=== PATIENT | female | born 1985 | race Caucasian/White ===

== ENCOUNTER → 2016-08-20 | Outpatient (CLI) | payer OTHER ==
[~2016-08-20] MED LIST: MESA10002 RC; NF-VYVAN20 PO
--- OUTSIDE RECORDS SUMMARY | 2016-08-20 10:21 | XMS REPORT | Continuity of Care Document ---
Author Author [facility] Organization [facility] Address Unknown Phone Unavailable Care Team Providers Care Dynamic Balancer Name Role Phone No Pcp, Na PCP Unavailable Source Comments Some departments are not documenting in the electronic medical record. If you do not see the information that you expected, contact Release of Information in the Health Information Management department at [phone] for further assistance in locating additional records.[facility] Active Allergies and Adverse Reactions Allergen Noted Date Severity Reactions Comments Indocin 06/15/2015 High VOMITING Current Medications Prescription Sig. Disp. Refills Start End Date Status Date lisdexamfetamine(+) Take 50 mg by mouth every Active (VYVANSE) 50 mg capsule morning Active Problems No known active problems Social History Tobacco Use Types Packs/Day Years Used Date Never Smoker Alcohol Use Drinks/Week oz/Week Comments Yes occ Last Filed Vital Signs Vital Sign Reading Time Taken Blood Pressure 112/60 06/15/2015 7:45 PM INFORMATION SECURITY SYSTEMS INSTRUCTOR Pulse 73 06/15/2015 7:45 PM INFORMATION SECURITY SYSTEMS INSTRUCTOR Temperature 36.5 C (97.7 F) 06/15/2015 7:45 PM INFORMATION SECURITY SYSTEMS INSTRUCTOR Respiratory Rate - - Height 1.651 m (5' 5") 06/15/2015 4:04 PM INFORMATION SECURITY SYSTEMS INSTRUCTOR Weight 71.3 kg (157 lb 3 oz) 06/15/2015 4:04 PM INFORMATION SECURITY SYSTEMS INSTRUCTOR Body Mass Index 26.16 06/15/2015 4:04 PM INFORMATION SECURITY SYSTEMS INSTRUCTOR Oxygen Saturation 100% 06/15/2015 7:45 PM INFORMATION SECURITY SYSTEMS INSTRUCTOR Plan of Care Health Maintenance Due Date Last Done Comments Physical (Comprehensive) 1990 Exam Pertussis Vaccine 1994 Tetanus Vaccine 02/28/2000 Cervical Cancer Screening 02/28/2004 Influenza Vaccine 02/16/2016 Results from Last 3 Months Not on file
--- NOTE | 2016-08-20 18:39 | Diagnostic Imaging Report ---
EXAMINATION: OB ultrasound. INDICATION: survey. COMPARISON: There are no prior studies available for comparison. FINDINGS: There is a single live fetus in variable presentation. heart motion was noted, and a rate of 160 BPM was recorded. There were no abnormalities identified. The placenta is anterior, and there is no previa. The amniotic fluid volume is within normal limits. The growth parameters are fairly uniform. The growth parameters are as follows: BPD: 5.01, 21 weeks 2 days. Head circumference: 18:57, 21 weeks 0 days. Abdominal circumference: 15.4, 20 weeks 5 days. Femur length: 3.11, 19 weeks 5 days. IMPRESSION: 1. There is a single live fetus of approximately 20 weeks 5 days gestation, +/-1 week. The EDC is January 02, 2017. 2. There were no abnormalities identified. 3. The growth parameters are fairly uniform. Dictated by: Dictated on workstation # [id number]
== END ==
LOC: RAD 10:18
PROVIDERS: ATTEND Obstetrics & Gynecology
DX: Z34.92 Encounter for supervision of normal pregnancy, unspecified, second trimester (principal); Z3A.20 20 weeks gestation of pregnancy
CPT/HCPCS: 76805

== ENCOUNTER 2016-11-26 19:05 | Outpatient (CLI) | payer OTHER ==
[~2016-11-26] VITALS: Ht 165.1 cm; Wt 83.9 kg
[2016-11-26 19:18] VITALS: BP 114/66
[2016-11-26] MEDS ORDERED: PREN-142 PO (21:22)
--- NOTE | 2016-11-26 21:49 | Diagnostic Imaging Report ---
INDICATION: Fall. TECHNIQUE: Multiple real-time grayscale images were obtained over the gravid uterus. COMPARISON: None FINDINGS: There is a single live intrauterine gestation in cephalic position. Amniotic fluid index is 7 cm,. The placenta is anterior and grade 2 without evidence of previa. heart rate is 124 beats per minute. No focal abnormality is suspected. Biometrical measurements are as follows: Biparietal 8.8 cm, age 35 weeks 6 days. Head circumference 33.0 cm, age 37 weeks 5 days. Abdominal circumference 31.2 cm, age 35 weeks 1 days. Femur length 6.9 cm, age 35 weeks 3 days. Sonographic estimate age: 36 weeks 1 days. Sonographic estimated date of delivery: 12-23-16. Estimated Weight: 2694 gm (+/- 393 gm). LMP percentile: 80%. heart rate: 124 beats per minute. number: 1 of 1. IMPRESSION: A single live intrauterine gestation, as discussed above, without evidence of placental abruption or other acute abnormality. Amniotic fluid index is at 7 cm. Dictated by: Dictated on workstation # [id number]
--- NOTE | 2016-11-27 12:23 | Physician Query-Final Dx ---
DULCE MARIA BOYKIN 11/27/16 1223: Clinic Account Progress/Dx Physician Query: Please give diagnosis Date of Service Nov 26, 2016 at 19:05 BERNICE BENITEZ DO 11/27/16 1320: Clinic Account Progress/Dx DIAGNOSIS: Diagnosis 34 week IUP Fall in DULCE MARIA BOYKIN Nov 27, 2016 12:23 BERNICE BENITEZ DO Nov 27, 2016 13:20
== END 2016-11-26 21:35 | disposition home or self-care (01) ==
LOC: LDRP 19:05 → WSo 19:05
PROVIDERS: ATTEND Obstetrics & Gynecology
DX: Z91.81 History of falling (principal); Z3A.34 34 weeks gestation of pregnancy
CPT/HCPCS: 76805; 99213

== ENCOUNTER 2016-12-19 20:40 | Observation (INO) | payer OTHER ==
[~2016-12-19] VITALS: Ht 165.1 cm; Wt 84.1 kg
[~2016-12-19 20:40] MED LIST changes: +PREN-142 PO
[2016-12-19 21:00] VITALS: BP 120/74
[2016-12-19 21:11] LABS: BILIRUBIN,URINE NEGATIVE (NEGATIVE); KETONES,URINE 3+ (NEGATIVE); LEUKOCYTE ESTERASE ,URINE NEGATIVE (NEGATIVE); NITRITE,URINE NEGATIVE (NEGATIVE); PH,URINE 6 (5-9); PROTEIN,URINE NEGATIVE (NEGATIVE); UROBILINOGEN,URINE NORMAL (NORMAL)
[2016-12-19] MEDS ORDERED: morphine INJ 10 MG/ML 1ML (SYR OR VIAL) IM PRN (22:00)
[2016-12-19] MEDS ORDERED: D5 NS 1000 ML IV SOLUTION 1,000 ML IV SCH (22:00)
[2016-12-19] MEDS ORDERED: D5 LR IV SOLUTION 1,000 ML IV SCH (22:00)
[2016-12-19 22:51] LABS: BASOPHILS % (AUTO) 0 % (0-10); EOSINOPHILS # (AUTO) 0.2 10^3/uL (0.0-0.3); EOSINOPHILS % (AUTO) 2 % (0-10); LYMPHOCYTES # (AUTO) 2.4 X 10^3 (1.0-4.0); LYMPHOCYTES % (AUTO) 23 % (12-44); MEAN CORPUSCULAR HEMOGLOBIN 32 PG (25-34); MEAN CORPUSCULAR HGB CONC 36 G/DL (32-36); MEAN CORPUSCULAR VOLUME 89 FL (80-99); MEAN PLATELET VOLUME 11.1 FL (7.4-10.4); MONOCYTES % (AUTO) 10 % (0-12); NEUTROPHILS # (AUTO) 6.8 X 10^3 (1.8-7.8); NEUTROPHILS % (AUTO) 65 % (42-75); PLATELET COUNT 150 10^3/uL (130-400); RED BLOOD COUNT 3.63 10^6/uL (4.35-5.85); WHITE BLOOD COUNT 10.4 10^3/uL (4.3-11.0)
[2016-12-19 23:20] VITALS: BP 117/72
--- OUTSIDE RECORDS SUMMARY | 2016-12-19 23:50 | XMS REPORT | Continuity of Care Document ---
Author Author [facility] Organization [facility] Address Unknown Phone Unavailable Care Team Providers Care Conference Assistant Name Role Phone No Pcp, Na PCP Unavailable Source Comments Some departments are not documenting in the electronic medical record. If you do not see the information that you expected, contact Release of Information in the Health Information Management department at [phone] for further assistance in locating additional records.[facility] Active Allergies and Adverse Reactions Allergen [...] Taken Blood Pressure 112/60 06/15/2015 7:45 PM FINANCIAL REP Pulse 73 06/15/2015 7:45 PM FINANCIAL REP Temperature 36.5 C (97.7 F) 06/15/2015 7:45 PM FINANCIAL REP Respiratory Rate - - Height 1.651 m (5' 5") 06/15/2015 4:04 PM FINANCIAL REP Weight 71.3 kg (157 lb 3 oz) 06/15/2015 4:04 PM FINANCIAL REP Body Mass Index 26.16 06/15/2015 4:04 PM FINANCIAL REP Oxygen Saturation 100% 06/15/2015 7:45 PM FINANCIAL REP Plan of Care Health Maintenance Due Date Last Done Comments Physical (Comprehensive) 1990 Exam Pertussis Vaccine 1994 Tetanus Vaccine 02/28/2000 Cervical Cancer Screening 02/28/2004 Influenza Vaccine 02/15/2017 Results from Last 3 Months Not on file
--- NOTE | 2016-12-21 08:41 | Physician Query-Final Dx ---
DONNA JOYCE 12/21/16 0841: Clinic Account Progress/Dx Physician Query: Please give diagnosis Date of Service Progress Note: Donna [phone] BERNICE BENITEZ DO 12/21/16 0929: Clinic Account Progress/Dx DIAGNOSIS: Diagnosis 37 week IUP Uterine contractions DONNA JOYCE Dec 21, 2016 08:41 BERNICE BENITEZ DO Dec 21, 2016 09:29
--- OUTSIDE RECORDS SUMMARY | 2016-12-25 04:03 | XMS REPORT | Continuity of Care Document ---
Author Author [facility] Organization [facility] Address Unknown Phone Unavailable Care Team Providers Care Commissary Worker Name Role Phone No Pcp, Na PCP Unavailable Source Comments Some departments are not documenting in the electronic medical record. If you do not see the information that you expected, contact Release of Information in the Health Information Management department at [phone] for further assistance in locating additional records.[facility] Active Allergies and Adverse Reactions Allergen Noted [...] Taken Blood Pressure 112/60 06/15/2015 7:45 PM FURNITURE CRATER Pulse 73 06/15/2015 7:45 PM FURNITURE CRATER Temperature 36.5 C (97.7 F) 06/15/2015 7:45 PM FURNITURE CRATER Respiratory Rate - - Height 1.651 m (5' 5") 06/15/2015 4:04 PM FURNITURE CRATER Weight 71.3 kg (157 lb 3 oz) 06/15/2015 4:04 PM FURNITURE CRATER Body Mass Index 26.16 06/15/2015 4:04 PM FURNITURE CRATER Oxygen Saturation 100% 06/15/2015 7:45 PM FURNITURE CRATER Plan of Care Health Maintenance Due Date Last Done Comments Physical (Comprehensive) 1990 Exam Pertussis Vaccine 1994 Tetanus Vaccine 02/28/2000 Cervical Cancer Screening 02/28/2004 Influenza Vaccine 02/15/2017 Results from Last 3 Months Not on file
[2016-12-25] MEDS ORDERED: DOCU100C37 PO (04:08)
[2016-12-25] MEDS ORDERED: HYDR-3812 PO (04:08)
[2016-12-25] MEDS ORDERED: IBUP-1773 PO (04:08)
== END 2016-12-20 00:09 | disposition home or self-care (01) ==
LOC: LDRP 20:40 → WSo 20:47 → LDRP 20:48 → WSo 20:48 → LDRP 21:54 → UNDOADMOB 21:55 → UNDODISOB 12-20 00:15 → EDSTATUS 12-20 15:17
PROVIDERS: ADMIT Obstetrics & Gynecology; ATTEND Obstetrics & Gynecology
DX: O47.1 False labor at or after 37 completed weeks of gestation (principal); Z3A.37 37 weeks gestation of pregnancy
CPT/HCPCS: 36415; 81000; 85025; 86850; 86900; 86901; 96360; 99211; 99213; G0378

== ENCOUNTER 2016-12-24 12:20 | Inpatient (IN) | payer OTHER ==
[~2016-12-24] VITALS: Ht 165.1 cm; Wt 84.6 kg
[2016-12-24] MEDS ORDERED: D5 LR IV SOLUTION 1,000 ML IV SCH (12:38)
--- NOTE | 2016-12-24 12:44 | History & Physical-OB ---
OB - Chief Complaint & HPI Date/Time Date of Admission: Date of Admission: Dec 24, 2016 at 12:20 Time Seen by Provider: 12:30 Chief Complaint/History OB-Reason for Admission/Chief: Section Hx : 4 Hx Para: 1 Expected Date of Delivery: Jan 05, 2017 Gestational Age in Weeks: 38 Gestational Age in Days: 2 Indication for : other (Incisional Pain, Previous , Active labor) Admission Nurse Assessment Rev: Yes History of Labs O pos Antibody neg RI RPR NR HBsAg NR HIV NR GC neg GBS neg Allergies and Home Medications Allergies Coded Allergies: indomethacin (Verified Allergy, Unknown, 12/19/16) Home Medications Vit No.124/Iron/FA 1 Each Tablet, 1 EACH PO DAILY, (Reported) OB - History Hx of Present Care: Yes Ultrasounds: Normal mid trimester US Obstetrical Complications: None Medical Complications: None Delivery History Hx Blood Disorders: No Patient Past Medical History ADHD OB - Admission Exam Physical Exam Date Seen by Provider: Dec 24, 2016 Time Seen by Provider: 12:30 HEENT: NCAT Heart: Rhythm Normal Lungs: Clear Abdomen: Gravid Extremities: Normal Reflexes: Normal Cervical Dilatation: None Effacement: 75% Station: -2 Membranes: Intact Heart Rate: 130's Accelerations: No Accelerations Decelerations: No Decelerations Short Term Variability: Present Suction Drum Drier Operator Variability: Minimal (3-5) Contractions on Admission: < 5 Minutes Apart Intensity: Moderate OB - Assessment/Plan/Diagnosis Assessment Assessment: section Plan Plan: Section Discharge Diagnosis Diagnosis: 31 yo @ 38.2 weeks Previous Active labor with uterine incision tenderness Non-reactive NST BERNICE BENITEZ DO Dec 24, 2016 12:44
[2016-12-24] MEDS ORDERED: ceFAZolin 2 GM/50 ML NS 50 ML IV ONE (12:45)
[2016-12-24 12:47] VITALS: BP 111/71
[2016-12-24 13:52] VITALS: BP 113/71
[2016-12-24 13:59] LABS: BASOPHILS % (AUTO) 0 % (0-10); EOSINOPHILS # (AUTO) 0.1 10^3/uL (0.0-0.3); EOSINOPHILS % (AUTO) 1 % (0-10); LYMPHOCYTES # (AUTO) 1.7 X 10^3 (1.0-4.0); LYMPHOCYTES % (AUTO) 18 % (12-44); MEAN CORPUSCULAR HEMOGLOBIN 31 PG (25-34); MEAN CORPUSCULAR HGB CONC 35 G/DL (32-36); MEAN CORPUSCULAR VOLUME 90 FL (80-99); MEAN PLATELET VOLUME 11.5 FL (7.4-10.4); MONOCYTES # (AUTO) 0.8 X 10^3 (0.0-1.0); MONOCYTES % (AUTO) 8 % (0-12); NEUTROPHILS # (AUTO) 6.5 X 10^3 (1.8-7.8); NEUTROPHILS % (AUTO) 72 % (42-75); PLATELET COUNT 170 10^3/uL (130-400); RED BLOOD COUNT 3.74 10^6/uL (4.35-5.85); RED CELL DISTRIBUTION WIDTH 13.4 % (10.0-14.5)
[2016-12-24] MEDS ORDERED: ceFAZolin 2 GM/50 ML NS 50 ML ONE (15:12)
[2016-12-24] MEDS ORDERED: METOCLOPRAMIDE INJ 10 MG/2 ML (REGLAN) ONE (15:12)
[2016-12-24 15:13] VITALS: BP 120/76
[2016-12-24] MEDS ORDERED: FAMOTIDINE 20MG/2ML IV (PEPCID) ONE (15:13)
[2016-12-24] MEDS ORDERED: CITRIC ACID/SOB CIT (BICITRA) 30 ML UDC ONE (15:14)
[2016-12-24] MEDS ORDERED: OXYTOCIN/NORMAL SALINE 1,000 ML IV ONE (15:42)
[2016-12-24 15:48] VITALS: BP 117/72
[2016-12-24] MEDS ORDERED: fentaNYL INJECTION 100 MCG/2 ML AMP ONE (16:13)
[2016-12-24] MEDS ORDERED: DEXAMETHASONE PF 10 MG/ML (DECADRON) VIAL ONE (16:25)
[2016-12-24] MEDS ORDERED: ONDANSETRON 4 MG/2 ML (SDV) Z0FRAN ONE (16:25)
[2016-12-24] MEDS ORDERED: PHENYLEPHRINE 100 MCG/ML 10 ML (ANESTHESIA) SYR ONE (17:00)
[2016-12-24] MEDS ORDERED: OXYTOCIN/NORMAL SALINE 500 ML IV SCH (17:08)
[2016-12-24] MEDS ORDERED: LACTATED RINGERS 1,000 ML IV SCH (17:12)
[2016-12-24] MEDS ORDERED: LACTATED RINGERS 1,000 ML IV ONE (17:12)
[2016-12-24] MEDS ORDERED: TETANUS,DIPTH,PERTUSS P/F (BOOSTRIX) 0.5 ML VIAL IM SCH (17:15)
[2016-12-24] MEDS ORDERED: METOCLOPRAMIDE INJ 10 MG/2 ML (REGLAN) IV ONE (17:15)
[2016-12-24] MEDS ORDERED: METOCLOPRAMIDE INJ 10 MG/2 ML (REGLAN) IV PRN (17:15)
[2016-12-24] MEDS ORDERED: HYDROmorphone (DILAUDID) 2 MG/ML VIAL IVP PRN (17:15)
[2016-12-24] MEDS ORDERED: ONDANSETRON 4 MG/2 ML (SDV) Z0FRAN IV PRN (17:15)
[2016-12-24] MEDS ORDERED: diphenhydrAMINE 50 MG/ML INJ (BENADRYL) IV PRN (17:15)
[2016-12-24] MEDS ORDERED: FAMOTIDINE 20MG/2ML IV (PEPCID) IV ONE (17:15)
[2016-12-24] MEDS ORDERED: MEASLES,MUMPS,RUBELLA 1 EA INJ SC SCH (17:15)
[2016-12-24] MEDS ORDERED: NALOXONE 0.4 MG/ML 1 ML (NARCAN) VIAL IV PRN ×2 (17:15)
[2016-12-24] MEDS ORDERED: CITRIC ACID/SOB CIT (BICITRA) 30 ML UDC PO ONE (17:15)
[2016-12-24] MEDS ORDERED: ONDANSETRON 4 MG/2 ML (SDV) Z0FRAN IVP PRN (17:15)
--- NOTE | 2016-12-24 17:17 | Progress Note-Post Operative ---
Post-Operative Progess Note Surgeon (s)/Teenage Program Director (s) Surgeon BERNICE BENITEZ DO Teenage Program Director: Alvina Elizabeth COMMERCIAL SOLAR SALES CONSULTANT Pre-Operative Diagnosis Active Labor, 38 week IUP, Previous Post-Operative Diagnosis same Procedure & Operative Findings Date of Procedure 12/24/16 Procedure Performed/Findings Procedure: Repeat low transverse section UOP: 150 mL Fluid 1000 ml LR EBL: 800 Findings: live male infant weight 6lbs 15 oz, APGARs 8/9, grossly normal uterus , tubes and ovaries Patient was taken the operating room where spinal analgesia is under adequate she's placed in the supine position with leftward tilt prepped and draped in normal sterile fashion. Anesthesia is tested and found to be adequate, timeout was performed. I then proceeded with making a Pfannenstiel skin incision through the previously existing scar using the knife and carried down to the underlying fascia using Bovie cautery. The fascial incision is extended laterally using Bovie cautery, I then grasped the superior aspect of the fascial incision using Zakia clamps and tented upward and dissected off of the underlying rectus muscles. In a similar fashion, the inferior margin of the rectus fascia is grasped with Guillermo clamps and tented upward and dissected under lying rectus muscles. The rectus and pyramidalis muscles are then dissected in the midline using Finch scissors exposing the peritoneum. the peritoneum is then entered bluntly and the peritoneal incision extended superiorly and inferiorly using Metzenbaum scissors with good visualization of underlying bladder and bowel. I then placed the Nitish ring retractor into the peritoneal incision which offers excellent lateral sidewall retraction. I identified the lower uterine segment which is found to be thinned out and make a low-transverse incision through the vesicouterine peritoneum using the knife and dissected off of the lower uterine segment cranial bladder flap. Myotomy is then continued until membranes are visualized which at that point I extend the uterine incision laterally and superiorly using banded scissors the is found in the vertex presentation, I'm able to elevate the 's head up to the incision and bulb suction the nares and oropharynx the anterior posterior shoulders were delivered and the infantis then brought out onto the operative field. the cord is doubly clamped and cut and the infant is handed off to nurses in attendance. Cord blood is collected. Three-vessel cord with intact placenta is delivered spontaneously thereafter. IV Pitocin is initiated to facilitate uterine contraction. Uterus becomes firm with bimanual massage. The uterus is then exteriorized and cleared of all endometrial clots and debris. I then closed the uterine incision using 0 Vicryl suture in a running locked fashion, a second layer of imbricating 0 Monocryl was placed and excellent hemostasis is noted after doing so. I then placed the uterus back within the pelvis and copiously irrigated the pelvis using normal saline. There is no active bleeding noted from any my dissection planes. I placed Interceed anti-adhesive over my low transverse incision, and proceed to closing the peritoneum using 3-0 Vicryl suture in a running fashion. The rectus muscles are reapproximated using 3-0 Vicryl suture in interrupted fashion. The fascia is reapproximated using 0 Vicryl suture in a running fashion. the subcutaneous tissue is reapproximated using 30 plain in interrupted subcutaneous stitch. And the skin is reapproximated using 4-0 Monocryl in a running subcuticular. Dermabond is applied to the incision and a sterile dressing is that he is a white tape. The patient tolerated the procedure well and is taken to the recovery area in stable condition. Lap and sponge count is correct at the end of the procedure and she may count is correct as well. 2 g of Ancef was given preoperatively for infection prophylaxis. Anesthesia Type spinal Estimated Blood Loss Estimated blood loss (mL): 800 Specimens/Packing Specimens Removed none BERNICE BENITEZ DO Dec 24, 2016 5:17 pm
[2016-12-24 18:10] VITALS: BP 102/69
[2016-12-24] MEDS: KETOROLAC 30 MG/ML VIAL IVP SCH ×2 (18:20→23:46)
[2016-12-24 21:00] VITALS: BP 103/63
[2016-12-24] MEDS: HYDROcodone/APAP 5 MG/325 MG (LORTAB) TAB PO PRN ×2 (21:05→21:24)
[2016-12-24] MEDS ORDERED: CATHETER FLUSH 10 ML SYR IV SCH (22:00)
[2016-12-25] VITALS (7 sets, daily range): BP systolic 97–105; BP diastolic 61–68
--- NOTE | 2016-12-25 04:07 | Discharge Inst-Women's Service ---
Discharge Inst-Women's Serv Depart Medication/Instructions New, Converted or Re-Newed RX: RX on Chart Consults/Follow Up Additional Follow Up: Yes Orders/Referrals Dr. Beasley in 7-10 days and in 6 weeks Activity Activity: Activity as Tolerated Driving Instructions: You May Drive (do not drive while taking hydrocodone) NO SMOKING: NO SMOKING Nothing Inside Vagina: No Douching, No [place], No Tampons Diet Discharge Diet: No Restrictions Symptoms to Report to : Bleeding Excessive, Pain Increased, Fever Over 101 Degrees F, Vaginal Bleeding Increase, Questions/Concerns For Any Problems or Questions: Contact Your Physician Skin/Wound Care Infection Signs and Symptoms: Increased Redness, Foul Odor of Wound, Increased Drainage, Skin Itchy or Has a Rash, Increased Swelling, Temperature Above 101 F Operative Area Clean and Dry: Keep Incision Clean/Dry Stitches/[place]/Dermabond: Dermabond, Care of Stitches Bathing Instructions: BERNICE Awad DO Dec 25, 2016 4:07 am
[2016-12-25] MEDS ORDERED: IBUP-1773 PO (04:08)
[2016-12-25] MEDS ORDERED: HYDR-3812 PO (04:08)
[2016-12-25] MEDS ORDERED: DOCU100C37 PO (04:08)
[2016-12-25] MEDS: HYDROcodone/APAP 5 MG/325 MG (LORTAB) TAB PO PRN ×3 (04:13→19:30)
[2016-12-25] MEDS: KETOROLAC 30 MG/ML VIAL IVP SCH (06:02)
[2016-12-25 06:19] LABS: BASOPHILS % (AUTO) 0 % (0-10); EOSINOPHILS % (AUTO) 0 % (0-10); LYMPHOCYTES # (AUTO) 1.5 X 10^3 (1.0-4.0); LYMPHOCYTES % (AUTO) 11 % (12-44); MEAN CORPUSCULAR HEMOGLOBIN 31 PG (25-34); MEAN CORPUSCULAR HGB CONC 34 G/DL (32-36); MEAN CORPUSCULAR VOLUME 91 FL (80-99); MEAN PLATELET VOLUME 10.8 FL (7.4-10.4); MONOCYTES # (AUTO) 1.1 X 10^3 (0.0-1.0); MONOCYTES % (AUTO) 9 % (0-12); NEUTROPHILS # (AUTO) 10.4 X 10^3 (1.8-7.8); NEUTROPHILS % (AUTO) 80 % (42-75); PLATELET COUNT 159 10^3/uL (130-400); RED BLOOD COUNT 2.97 10^6/uL (4.35-5.85); RED CELL DISTRIBUTION WIDTH 12.9 % (10.0-14.5); WHITE BLOOD COUNT 13.1 10^3/uL (4.3-11.0)
[2016-12-25] MEDS: DOCUSATE SODIUM 100 MG (COLACE) CAP PO SCH ×2 (08:05→19:30)
--- NOTE | 2016-12-25 10:18 | Postpartum Progress Note ---
Post Op Post-operative Day #1 s/p RLTCS Subjective: Patient is without complaints. Ambulating, voiding after fernando removed. Tolerating a regular diet without nausea or vomiting. Normal lochia. Pain is well controlled with oral pain medications. Passing flatus. Objective: Laboratory Tests Test 12/24/16 13:38 12/25/16 06:05 Range/Units White Blood Count 9.0 13.1 H 4.3-11.0 10^3/uL Red Blood Count 3.74 L 2.97 L 4.35-5.85 10^6/uL Hemoglobin 11.7 9.3 #L 11.5-16.0 G/DL Hematocrit 34 L 27 L 35-52 % Mean Corpuscular Volume 90 91 80-99 FL Mean Corpuscular Hemoglobin 31 31 25-34 PG Mean Corpuscular Hemoglobin Concent 35 34 32-36 G/DL Red Cell Distribution Width 13.4 12.9 10.0-14.5 % Platelet Count 170 159 130-400 10^3/uL Mean Platelet Volume 11.5 H 10.8 H 7.4-10.4 FL Neutrophils (%) (Auto) 72 80 H 42-75 % Lymphocytes (%) (Auto) 18 11 L 12-44 % Monocytes (%) (Auto) 8 9 0-12 % Eosinophils (%) (Auto) 1 0 0-10 % Basophils (%) (Auto) 0 0 0-10 % Neutrophils # (Auto) 6.5 10.4 H 1.8-7.8 X 10^3 Lymphocytes # (Auto) 1.7 1.5 1.0-4.0 X 10^3 Monocytes # (Auto) 0.8 1.1 H 0.0-1.0 X 10^3 Eosinophils # (Auto) 0.1 0.0 0.0-0.3 10^3/uL Basophils # (Auto) 0.0 0.0 0.0-0.1 10^3/uL Vital Sign - Last 12Hours 12/25/16 12/25/16 00:00 04:00 Temp 97.7 98.1 Pulse 72 62 Resp 18 18 B/P (MAP) 104/67 100/61 Pulse Ox 96 95 O2 Delivery Room Air Room Air Intake and Output 12/24/16 23:59 Intake Total 2050 ml Output Total 1035 ml Balance 1015 ml Physical Exam: General - Alert and oriented, no apparent distress Abdomen - Soft, appropriately tender to palpation, non-distended, fundus firm at umbilicus Incision - clean, dry and intact; no erythema or induration, no drainage Extremities - no edema, negative Claudia's bilaterally [] Assessment: [] post-operative day # [], status post []. Recovering well, hemodynamically stable Acute blood loss anemia [] Plan: Routine post-operative care. Encourage breast feeding. Encourage ambulation. VTE prophylaxis: SCDs. Ferrous sulfate supplementation. Plan for discharge [] Vitals - Labs Vital Signs - I&O Vital Signs Date Time Temp Pulse Resp B/P (MAP) Pulse Ox O2 Delivery O2 Flow Rate FiO2 12/25/16 04:00 98.1 62 18 100/61 95 Room Air 12/25/16 00:00 97.7 72 18 104/67 96 Room Air 12/24/16 21:00 98.1 71 18 103/63 100 Room Air 12/24/16 20:57 Room Air 12/24/16 18:10 97.1 56 18 102/69 100 Room Air 12/24/16 15:48 97.8 71 18 117/72 Room Air 12/24/16 15:13 100.1 63 120/76 Room Air 12/24/16 13:52 99.5 70 18 113/71 Room Air 12/24/16 12:47 99.5 66 18 111/71 99 Room Air I & O 12/25/16 06:59 Intake Total 4050 ml Output Total 3335 ml Balance 715 ml Labs Laboratory Tests 12/24/16 13:38: White Blood Count 9.0, Red Blood Count 3.74L, Hemoglobin 11.7, Hematocrit 34L, Mean Corpuscular Volume 90, Mean Corpuscular Hemoglobin 31, Mean Corpuscular Hemoglobin Concent 35, Red Cell Distribution Width 13.4, Platelet Count 170, Mean Platelet Volume 11.5H, Neutrophils (%) (Auto) 72, Lymphocytes (%) (Auto) 18 , Monocytes (%) (Auto) 8, Eosinophils (%) (Auto) 1, Basophils (%) (Auto) 0, Neutrophils # (Auto) 6.5, Lymphocytes # (Auto) 1.7, Monocytes # (Auto) 0.8, Eosinophils # (Auto) 0.1, Basophils # (Auto) 0.0 12/25/16 06:05: White Blood Count 13.1H, Red Blood Count 2.97L, Hemoglobin 9.3#L, Hematocrit 27L , Mean Corpuscular Volume 91, Mean Corpuscular Hemoglobin 31, Mean Corpuscular Hemoglobin Concent 34, Red Cell Distribution Width 12.9, Platelet Count 159, Mean Platelet Volume 10.8H, Neutrophils (%) (Auto) 80H, Lymphocytes (%) (Auto) 11L, Monocytes (%) (Auto) 9, Eosinophils (%) (Auto) 0, Basophils (%) (Auto) 0, Neutrophils # (Auto) 10.4H, Lymphocytes # (Auto) 1.5, Monocytes # (Auto) 1.1H, Eosinophils # (Auto) 0.0, Basophils # (Auto) 0.0 TIN ZAMORA DO Dec 25, 2016 10:18
--- NOTE | 2016-12-25 12:38 | Progress Note-Standard ---
Standard Progress Note Progress Notes/Assess & Plan Date Seen by Provider: Dec 25, 2016 Time Seen by Provider: 08:15 Progress/Assessment & Plan Patient doing well this AM. No concerns voiced. Pain well controlled. Ambulating and voiding freely. Lochia light Vital Sign - Last 24 Hours 12/24/16 12/24/16 12/24/16 12/24/16 12:47 13:52 15:13 15:48 Temp 99.5 99.5 100.1 97.8 Pulse 66 70 63 71 Resp 18 18 18 B/P (MAP) 111/71 113/71 120/76 117/72 Pulse Ox 99 O2 Delivery Room Air Room Air Room Air Room Air 12/24/16 12/24/16 12/24/16 12/25/16 18:10 20:57 21:00 00:00 Temp 97.1 98.1 97.7 Pulse 56 71 72 Resp 18 18 18 B/P (MAP) 102/69 103/63 104/67 Pulse Ox 100 100 96 O2 Delivery Room Air Room Air Room Air Room Air 12/25/16 12/25/16 04:00 08:00 Temp 98.1 97.6 Pulse 62 64 Resp 18 18 B/P (MAP) 100/61 102/64 Pulse Ox 95 97 O2 Delivery Room Air Room Air Intake and Output 12/24/16 12/24/16 12/25/16 15:00 23:00 07:00 Intake Total 2050 ml 2000 ml Output Total 1035 ml 2300 ml Balance 1015 ml -300 ml Incision: c/d/i Uterine fundus firm and palpated below umbilicus Laboratory Tests Test 12/24/16 13:38 12/25/16 06:05 Range/Units White Blood Count 9.0 13.1 H 4.3-11.0 10^3/uL Red Blood Count 3.74 L 2.97 L 4.35-5.85 10^6/uL Hemoglobin 11.7 9.3 #L 11.5-16.0 G/DL Hematocrit 34 L 27 L 35-52 % Mean Corpuscular Volume 90 91 80-99 FL Mean Corpuscular Hemoglobin 31 31 25-34 PG Mean Corpuscular Hemoglobin Concent 35 34 32-36 G/DL Red Cell Distribution Width 13.4 12.9 10.0-14.5 % Platelet Count 170 159 130-400 10^3/uL Mean Platelet Volume 11.5 H 10.8 H 7.4-10.4 FL Neutrophils (%) (Auto) 72 80 H 42-75 % Lymphocytes (%) (Auto) 18 11 L 12-44 % Monocytes (%) (Auto) 8 9 0-12 % Eosinophils (%) (Auto) 1 0 0-10 % Basophils (%) (Auto) 0 0 0-10 % Neutrophils # (Auto) 6.5 10.4 H 1.8-7.8 X 10^3 Lymphocytes # (Auto) 1.7 1.5 1.0-4.0 X 10^3 Monocytes # (Auto) 0.8 1.1 H 0.0-1.0 X 10^3 Eosinophils # (Auto) 0.1 0.0 0.0-0.3 10^3/uL Basophils # (Auto) 0.0 0.0 0.0-0.1 10^3/uL Diagnosis: POD 1 RLTCS Acute blood loss anemia P: Replace iron Continue routine PO care Anticipate dc tomorrow BERNICE BENITEZ DO Dec 25, 2016 12:38 pm
[2016-12-25] MEDS: IBUPROFEN 600 MG (MOTRIN) TAB PO SCH ×2 (12:42→18:17)
--- NOTE | 2016-12-25 13:44 | Anesthesia-Regional Post-Op ---
Regional Patient Condition Mental Status: Alert, Oriented x3 Circulation: Same as Pre-Op Headache: Absent Sensation: Full Recovery Motor Block: Absent Post Op Complications Complications None Follow Up Care/Instructions Patient Instructions None needed. Anesthesia/Patient Condition Patient is doing well, no complaints, stable vital signs, no apparent adverse anesthesia problems. No complications reported per nursing. [place] [facility] [place]: No DIMITRIS RUSSELL CRNA Dec 25, 2016 13:44
--- OUTSIDE RECORDS SUMMARY | 2016-12-25 17:51 | XMS REPORT | Continuity of Care Document ---
Author Author [facility] Organization [facility] Address Unknown Phone Unavailable Care Team Providers Care Client Development Manager Name Role Phone No Pcp, Na PCP Unavailable Source Comments Some departments are not documenting in the electronic medical record. If you do not see the information that you expected, contact Release of Information in the Health Information Management department at [phone] for further assistance in locating additional records.[facility] Active Allergies and Adverse Reactions Allergen Noted [...] Taken Blood Pressure 112/60 06/15/2015 7:45 PM GIFT SHOP ASSISTANT Pulse 73 06/15/2015 7:45 PM GIFT SHOP ASSISTANT Temperature 36.5 C (97.7 F) 06/15/2015 7:45 PM GIFT SHOP ASSISTANT Respiratory Rate - - Height 1.651 m (5' 5") 06/15/2015 4:04 PM GIFT SHOP ASSISTANT Weight 71.3 kg (157 lb 3 oz) 06/15/2015 4:04 PM GIFT SHOP ASSISTANT Body Mass Index 26.16 06/15/2015 4:04 PM GIFT SHOP ASSISTANT Oxygen Saturation 100% 06/15/2015 7:45 PM GIFT SHOP ASSISTANT Plan of Care Health Maintenance Due Date Last Done Comments Physical (Comprehensive) 1990 Exam Pertussis Vaccine 1994 Tetanus Vaccine 02/28/2000 Cervical Cancer Screening 02/28/2004 Influenza Vaccine 02/15/2017 Results from Last 3 Months Not on file
[2016-12-26] MEDS: IBUPROFEN 600 MG (MOTRIN) TAB PO SCH ×3 (00:04→11:44)
[2016-12-26 03:50] VITALS: BP 117/68
[2016-12-26 03:55] VITALS: BP 92/60
[2016-12-26] MEDS: HYDROcodone/APAP 5 MG/325 MG (LORTAB) TAB PO PRN ×2 (04:03→09:34)
[2016-12-26 08:25] VITALS: BP 107/67
--- NOTE | 2016-12-26 08:27 | Postpartum Progress Note ---
Post Op Post-operative Day #2 Subjective: Patient is without complaints. Ambulating, voiding. Tolerating a regular diet without nausea or vomiting. Normal lochia. Pain is well controlled with oral pain medications. Desires d/c home today. Objective: VS - Last 72 Hours, by Label 12/24/16 12/24/16 12/24/16 12/24/16 12:47 13:52 15:13 15:48 Temp 99.5 99.5 100.1 97.8 Pulse 66 70 63 71 Resp 18 18 18 B/P (MAP) 111/71 113/71 120/76 117/72 Pulse Ox 99 O2 Delivery Room Air Room Air Room Air Room Air 12/24/16 12/24/16 12/24/16 12/25/16 18:10 20:57 21:00 00:00 Temp 97.1 98.1 97.7 Pulse 56 71 72 Resp 18 18 18 B/P (MAP) 102/69 103/63 104/67 Pulse Ox 100 100 96 O2 Delivery Room Air Room Air Room Air Room Air 12/25/16 12/25/16 12/25/16 12/25/16 04:00 08:00 13:00 16:45 Temp 98.1 97.6 97.0 98.9 Pulse 62 64 76 71 Resp 18 18 18 18 B/P (MAP) 100/61 102/64 97/65 105/67 Pulse Ox 95 97 98 98 O2 Delivery Room Air Room Air Room Air Room Air 12/25/16 12/26/16 20:05 03:55 Temp 98.4 98.2 Pulse 78 71 Resp 18 18 B/P (MAP) 97/62 92/60 Pulse Ox 96 95 O2 Delivery Room Air Room Air Physical Exam: General - Alert and oriented, no apparent distress Abdomen - Soft, appropriately tender to palpation, non-distended, fundus firm at umbilicus Incision - clean, dry and intact; no erythema or induration, no drainage Extremities - no edema, negative Claudia's bilaterally no new labs Assessment: 31 y/o post-operative day # 2, status post RLTCS. Recovering well, hemodynamically stable Acute blood loss anemia Plan: Routine post-operative care. Encourage breast feeding. Encourage ambulation. VTE prophylaxis: SCDs. Ferrous sulfate supplementation. Plan for discharge today, f/u with Dr. Beasley in one week Vitals - Labs Vital Signs - I&O Vital Signs Date Time Temp Pulse Resp B/P (MAP) Pulse Ox O2 Delivery O2 Flow Rate FiO2 12/26/16 03:55 98.2 71 18 92/60 95 Room Air 12/25/16 20:05 98.4 78 18 97/62 96 Room Air 12/25/16 16:45 98.9 71 18 105/67 98 Room Air 12/25/16 13:00 97.0 76 18 97/65 98 Room Air I & O 12/26/16 07:00 Intake Total 2800 ml Output Total 3350 ml Balance -550 ml Labs Microbiology 12/24/16 MRSA Screen - Final, Complete MRSA not isolated PILI BOWER MD Dec 26, 2016 08:27
[2016-12-26] MEDS ORDERED: FERR-74 PO (08:28)
[2016-12-26] MEDS: DOCUSATE SODIUM 100 MG (COLACE) CAP PO SCH (08:44)
[2016-12-26 13:00] VITALS: BP 107/67
== END 2016-12-26 13:00 | disposition home or self-care (01) | DRG 765 ==
LOC: LDRP 12:20
PROVIDERS: ADMIT Obstetrics & Gynecology; ATTEND Obstetrics & Gynecology
PROC: 3E0P05Z Introduction of Adhesion Barrier into Female Reproductive, Open Approach (ICD-10-PCS; 2016-12-24)
PROC: 10D00Z1 Extraction of Products of Conception, Low, Open Approach (ICD-10-PCS; principal; 2016-12-24 16:05)
DX: O34.211 Maternal care for low transverse scar from previous cesarean delivery (principal); O99.03 Anemia complicating the puerperium; D62 Acute posthemorrhagic anemia; Z3A.38 38 weeks gestation of pregnancy; Z37.0 Single live birth; Z23 Encounter for immunization
CPT/HCPCS: 36415; 85025; 86850; 86900; 86901; 87081; 90715; 94664

== ENCOUNTER → 2018-08-06 | Outpatient (CLI) | payer OTHER ==
--- NOTE | 2018-08-06 16:27 | Diagnostic Imaging Report ---
INDICATION: survey. TECHNIQUE: Multiple real-time grayscale images were obtained over the gravid uterus. COMPARISON: There are no prior studies available for comparison. FINDINGS: There is a single live fetus in breech presentation. heart motion was noted and a rate of 150 bpm was recorded. There were no abnormalities identified. The amniotic fluid volume is within normal limits. The placenta is fundal and there is no previa. The growth parameters are fairly uniform. Biometrical measurements are as follows: Biparietal 5.15 cm, age 21 weeks 5 days. Head circumference 19.54 cm, age 21 weeks 6 days. Abdominal circumference 15.54 cm, age 20 weeks 5 days. Femur length 3.58 cm, age 21 weeks 3 days. Sonographic estimate age: 21 weeks 3 days. Sonographic estimated date of delivery: 12/14/2018. Estimated Weight: 399 gm (+/- 58 gm). LMP percentile: 91%. heart rate: 150 beats per minute. number: 1 of 1. IMPRESSION: 1. There is a single live fetus approximately 21 weeks 3 days gestation + / -2 weeks. EDC is 12/14/2018. 2. There were no abnormalities identified. 3. The growth parameters are fairly uniform. Dictated by: Dictated on workstation # [id number]
== END ==
LOC: RAD 15:06
PROVIDERS: ATTEND Obstetrics & Gynecology
DX: Z36.89 Encounter for other specified antenatal screening (principal); Z3A.21 21 weeks gestation of pregnancy
CPT/HCPCS: 76805

== ENCOUNTER 2018-12-12 21:51 | Inpatient (IN) | payer OTHER ==
[~2018-12-12] VITALS: Ht 165.1 cm; Wt 88.7 kg
[~2018-12-12 21:51] MED LIST changes: +ACHD5005 PO; +DOCU100C37 PO; +FERR325T18 PO; +IBUP-1773 PO
--- NOTE | 2018-12-12 21:57 | NUR ---
STEFAN DAUGHERTY presented to unit via ambulatory from ED, with c/o CONTRACTIONS since 0. STEFAN DAUGHERTY weighed, gowned, voided, and to bed. EFHM and TOCO applied, VS taken. STEFAN DAUGHERTY oriented to bed controls, call light, TV, heat, and A/C controls.
[2018-12-12 22:00] VITALS: BP 136/80
--- NOTE | 2018-12-12 22:32 | NUR ---
notified of pt's arrival. en route to hospital
[2018-12-12] MEDS ORDERED: METOCLOPRAMIDE INJ 10 MG/2 ML (REGLAN) ONE (22:34)
[2018-12-12] MEDS ORDERED: FAMOTIDINE 20MG/2ML IV (PEPCID) ONE (22:34)
[2018-12-12] MEDS ORDERED: CITRIC ACID/SOB CIT (BICITRA) 30 ML UDC ONE (22:34)
[2018-12-12] MEDS ORDERED: LACTATED RINGERS 1,000 ML IV ONE (22:35)
[2018-12-12] MEDS ORDERED: D5 LR IV SOLUTION 1,000 ML IV SCH (23:04)
--- NOTE | 2018-12-12 23:04 | History & Physical-OB ---
OB - Chief Complaint & HPI Date/Time Date of Admission: Date of Admission: Date seen by a Provider: Dec 12, 2018 Time Seen by a Provider: 23:00 Chief Complaint/History OB-Reason for Admission/Chief: Onset of Labor Hx : 5 Hx Para: 2 Expected Date of Delivery: Dec 12, 2018 Gestational Age in Weeks: 38 Gestational Age in Days: 4 Indication for : desires repeat Admission Nurse Assessment Rev: Yes History of Labs O pos Antibody neg RI RPR NR HIV NR HBsAg NR GC neg GBS neg Allergies and Home Medications Allergies Coded Allergies: indomethacin (Verified Allergy, Unknown, 12/19/16) Home Medications Docusate Sodium 100 Mg Capsule, 100 MG PO BID PRN for CONSTIPATION-1ST LINE Prescribed by: BERNICE BENITEZ on 12/25/16407 Ferrous Sulfate 325 Mg Tablet, 325 MG PO BID WITH MEALS Prescribed by: PILI BOWER on 12/26/16 0828 Hydrocodone Bit/Acetaminophen 1 Each Tablet, 1-2 TAB PO Q4H PRN for PAIN- MODERATE Prescribed by: BERNICE BENITEZ on 12/25/16407 Ibuprofen 600 Mg Tablet, 600 MG PO Q6H Prescribed by: BERNICE BENITEZ on 12/25/16407 Vit No.124/Iron/FA 1 Each Tablet, 1 EACH PO DAILY, (Reported) Patient Home Medication List Home Medication List Reviewed: Yes OB - History Hx of Present Care: Yes Ultrasounds: Normal mid trimester US Obstetrical Complications: None Medical Complications: None Delivery History Hx Blood Disorders: No Adverse Rxn to Tranfusion: No Patient Past Medical History ADHD Immunizations Hepatitis A: Yes Hepatitis B: Yes OB - Admission Exam Physical Exam HEENT: NCAT Heart: Rhythm Normal Lungs: Clear Abdomen: Gravid Extremities: Normal Reflexes: Normal Cervical Dilatation: None Effacement: 50% Station: -2 Membranes: Intact Heart Rate: 130's Accelerations: Accelerations Present Decelerations: No Decelerations Short Term Variability: Present Instantizer Operator Variability: Average (6-25) Contractions on Admission: < 5 Minutes Apart OB - Assessment/Plan/Diagnosis Assessment Assessment: active labor, section Admission Dx 33 yo @ 38.4 Previous c/s x 2 Active labor Admission Status: Inpatient Order (span 2 midnights) Reason for Inpatient Admission: Repeat Plan Plan: Section BERNICE BENITEZ DO Dec 12, 2018 23:04
--- NOTE | 2018-12-12 23:10 | NUR ---
decision for c/s decided. Or Crew notified and en route to hospital
[2018-12-12] MEDS ORDERED: ceFAZolin 2 GM/50 ML NS 50 ML IV ONE (23:15)
[2018-12-12] MEDS ORDERED: KETOROLAC 30 MG/ML VIAL IV SCH (23:15)
[2018-12-12] MEDS ORDERED: TETANUS,DIPTH,PERTUSS P/F (BOOSTRIX) 0.5 ML VIAL IM SCH (23:15)
[2018-12-12] MEDS ORDERED: MEASLES,MUMPS,RUBELLA 1 EA INJ SC SCH (23:15)
[2018-12-12] MEDS ORDERED: ONDANSETRON 4 MG/2 ML (SDV) Z0FRAN IVP PRN (23:15)
--- NOTE | 2018-12-12 23:19 | Discharge Inst-Women's Service ---
Discharge Inst-Women's Serv Depart Medication/Instructions New, Converted or Re-Newed RX: RX on Chart Final Diagnosis POD 2 RLTCS Consults/Follow Up Additional Follow Up: Yes Orders/Referrals Dr. Beasley in 7-10 days and in 6 weeks Activity Activity: Activity as Tolerated Driving Instructions: No Driving for 1 Week NO SMOKING: NO SMOKING Nothing Inside Vagina: No Douching, No [place], No Tampons Diet Discharge Diet: No Restrictions Symptoms to Report to : Bleeding Excessive, Pain Increased, Fever Over 101 Degrees F, Vaginal Bleeding Increase, Questions/Concerns For Any Problems or Questions: Contact Your Physician Skin/Wound Care Infection Signs and Symptoms: Increased Redness, Foul Odor of Wound, Increased Drainage, Skin Itchy or Has a Rash, Increased Swelling, Temperature Above 101 F Operative Area Clean and Dry: Keep Incision Clean/Dry Stitches/[place]/Dermabond: Dermabond, Care of Stitches Bathing Instructions: BERNICE Awad DO Dec 12, 2018 23:19
[2018-12-12] MEDS ORDERED: DOCU100C37 PO (23:22)
[2018-12-12] MEDS ORDERED: ACHD5005 PO (23:22)
[2018-12-12] MEDS ORDERED: IBUP-844 PO (23:22)
[2018-12-12 23:23] LABS: BASOPHILS % (AUTO) 0 % (0-10); EOSINOPHILS # (AUTO) 0.2 10^3/uL (0.0-0.3); EOSINOPHILS % (AUTO) 2 % (0-10); HEMATOCRIT 35 % (35-52); HEMOGLOBIN 12.2 G/DL (11.5-16.0); LYMPHOCYTES # (AUTO) 2.5 X 10^3 (1.0-4.0); LYMPHOCYTES % (AUTO) 21 % (12-44); MEAN CORPUSCULAR HEMOGLOBIN 31 PG (25-34); MEAN CORPUSCULAR HGB CONC 35 G/DL (32-36); MEAN CORPUSCULAR VOLUME 90 FL (80-99); MEAN PLATELET VOLUME 10.9 FL (7.4-10.4); MONOCYTES # (AUTO) 0.7 X 10^3 (0.0-1.0); MONOCYTES % (AUTO) 6 % (0-12); NEUTROPHILS # (AUTO) 8.2 X 10^3 (1.8-7.8); NEUTROPHILS % (AUTO) 71 % (42-75); PLATELET COUNT 178 10^3/uL (130-400); WHITE BLOOD COUNT 11.6 10^3/uL (4.3-11.0)
[2018-12-12] MEDS ORDERED: fentaNYL INJECTION 100 MCG/2 ML AMP ONE (23:42)
[2018-12-12] MEDS ORDERED: KETAMINE/NaCl 50 MG/5 ML SYRINGE ONE (23:43)
[2018-12-13] VITALS (8 sets, daily range): BP systolic 82–114; BP diastolic 51–77
[2018-12-13] MEDS ORDERED: BUPIVACAINE SPINAL 0.75% (SENSORCAINE) 2 ML AMP ONE (00:13)
[2018-12-13] MEDS ORDERED: PHENYLEPHRINE 100 MCG/ML 10 ML (ANESTHESIA) SYR ONE (00:20)
[2018-12-13] MEDS ORDERED: LIDOCAINE PF 2% 5 ML (XYLOCAINE) VIAL ONE (00:20)
[2018-12-13] MEDS ORDERED: KETOROLAC 30 MG/ML VIAL ONE (00:20)
[2018-12-13] MEDS ORDERED: OXYTOCIN/NORMAL SALINE 1,000 ML IV ONE (00:20)
[2018-12-13] MEDS ORDERED: ONDANSETRON 4 MG/2 ML (SDV) Z0FRAN ONE (00:48)
[2018-12-13] MEDS ORDERED: OXYTOCIN/NORMAL SALINE 500 ML IV SCH (01:30)
[2018-12-13] MEDS ORDERED: OXYTOCIN/NORMAL SALINE 500 ML IV ONE (02:04)
[2018-12-13] MEDS: HYDROcodone/APAP 5 MG/325 MG (LORTAB) TAB PO PRN ×3 (04:07→20:42)
--- NOTE | 2018-12-13 05:03 | OPERATIVE REPORT ---
DATE OF SERVICE: PREOPERATIVE DIAGNOSES: 1. A 33-year-old G5, P2, at 38 weeks' gestation. 2. Previous section x2. 3. Active labor. POSTOPERATIVE DIAGNOSES: 1. A 33-year-old G5, P2, at 38 weeks' gestation. 2. Previous section x2. 3. Active labor. PROCEDURE: Repeat low transverse section. SURGEON: Brian Benitez DO ANESTHESIA: Spinal. ESTIMATED BLOOD LOSS: 500 mL. URINE OUTPUT: 40 mL clear at the end of the procedure. FLUIDS: 1700 mL of lactated Ringer's solution. FINDINGS: A live male weighing 8 pounds 1 ounce, Apgars of 8 and 9. Grossly normal appearing uterus, bilateral fallopian tubes and ovaries. SPECIMENS SENT: None. INDICATIONS FOR PROCEDURE: This 33-year-old female with a patient who had sought care in my office throughout her . We had discussed proceeding with repeat due to the fact that she had 2 prior . Risk of the procedure was discussed with the patient in detail. Throughout her care, she was well aware of this risk including bleeding, infection, damaging surrounding structures including, but not limited to bowel, bladder, ureter, kidneys, possible need for hysterectomy, loss of long-term fertility, possible need for reoperation and recovery timeframe, need for possible blood transfusion and even . After everything was discussed with the patient in the preoperative area, consent was then obtained and the patient was then taken to the operating room. OPERATIVE REPORT IN DETAIL: Once in the operating room, spinal analgesia was found to be adequate. She was placed in the supine position with left lateral tilt, prepped and draped in normal sterile fashion. Anesthesia was then tested and timeout was performed. I then proceeded with making a Pfannenstiel skin incision through the previously existing scar using a knife and carried down to the underlying fascia using Bovie cautery. The fascial incision was extended laterally using Bovie cautery. Superior aspect of the fascial incision was then grasped with Guillermo clamps, tented up and dissected off the underlying rectus muscles. The inferior aspect of the fascial incision was then grasped with Guillermo clamps, tented up and dissected off the underlying rectus muscles. The rectus muscle was then dissected off the midline using Finch scissors, which exposed the peritoneum, which I entered bluntly and extended using blunt traction. Nitish ring retractor was then placed within the peritoneal incision, which offered excellent lateral sidewall retraction. The lower uterine segments identified and found to be thinned out and make a low transverse incision into the vesicouterine peritoneum and bluntly dissected off the lower uterine segment. I then proceeded with myotomy until membranes were visualized, at which point I extended uterine incision laterally and superiorly using bandage scissors. Amniotomy was performed incidentally in doing so. Clear fluid was noted at the time of rupture. The was found in the vertex presentation. With gentle fundal pressure, the infant's head was elevated out of the incision and delivered through the incision, where the nares and oropharynx were bulb suctioned and nuchal cord was reduced x1. Anterior and posterior shoulders were delivered. The infant was then brought out into the operative field where the cord was doubly clamped and cut and the infant was handed off to waiting nurses in attendance. Cord blood was collected. Three-vessel cord with intact placenta was delivered spontaneously thereafter. IV Pitocin was initiated to facilitate uterine contraction. Uterine fundus became firmer with bimanual massage. The uterus was then exteriorized and cleared of all endometrial clots and debris. I then proceeded to close the uterine incision using 0 Vicryl suture in running locked fashion. Second layer of imbricating 0 Monocryl was placed. Excellent hemostasis was noted after doing this. I then placed the uterus back within the pelvis and copiously irrigated the pelvis using normal saline. Once again, there was no active bleeding noted from remaining of my dissection planes. I placed Interceed antiadhesive over my low transverse incision and proceeded with closing the peritoneum using 3-0 Vicryl suture in a running fashion. The rectus muscle was reapproximated using 3-0 Vicryl suture in interrupted fashion. The fascia was reapproximated using 0 Vicryl suture in a running fashion. The subcutaneous tissue was reapproximated using 3-0 plain in interrupted subcutaneous stitch and the skin reapproximated using 4-0 Monocryl in a running subcuticular. Dermabond was applied to the incision, sterile dressing with adhesive white tape. The patient tolerated the procedure well and was taken to the recovery area in stable condition. Lap and sponge count was correct at the end of the procedure and instrument counts were correct as well. Two grams of Ancef given preoperatively for infection prophylaxis. Job ID: [id number] DocumentID: [id number] Dictated Date: 12/13/2018 01:02:40 Wire Spinner Date: 12/13/2018 05:02:44 Dictated By: BRIAN BENITEZ DO
[2018-12-13 05:44] LABS: BASOPHILS % (AUTO) 0 % (0-10); EOSINOPHILS # (AUTO) 0.1 10^3/uL (0.0-0.3); EOSINOPHILS % (AUTO) 0 % (0-10); HEMATOCRIT 30 % (35-52); HEMOGLOBIN 10.5 G/DL (11.5-16.0); LYMPHOCYTES # (AUTO) 1.6 X 10^3 (1.0-4.0); LYMPHOCYTES % (AUTO) 14 % (12-44); MEAN CORPUSCULAR HEMOGLOBIN 32 PG (25-34); MEAN CORPUSCULAR HGB CONC 35 G/DL (32-36); MEAN CORPUSCULAR VOLUME 91 FL (80-99); MEAN PLATELET VOLUME 10.2 FL (7.4-10.4); MONOCYTES # (AUTO) 0.8 X 10^3 (0.0-1.0); MONOCYTES % (AUTO) 7 % (0-12); NEUTROPHILS # (AUTO) 9.1 X 10^3 (1.8-7.8); NEUTROPHILS % (AUTO) 79 % (42-75); PLATELET COUNT 137 10^3/uL (130-400); WHITE BLOOD COUNT 11.5 10^3/uL (4.3-11.0)
[2018-12-13] MEDS ORDERED: CATHETER FLUSH 10 ML SYR IV SCH ×2 (06:00)
--- NOTE | 2018-12-13 06:14 | NUR ---
PT UP TO THE BATHROOM. POSITIVE VOID. PERICARE COMPLETED. GOWN CHANGED. PT ASSISTED BACK TO BED. ABDOMINAL DSG REMOVED. TELFA STUCK TO SMALL AREA OF INCISION. TEFLA LEFT IN PLACE AT THIS TIME.
--- NOTE | 2018-12-13 07:48 | Postpartum Progress Note ---
Note Note Day # 1 Subjective: Patient is without complaints. Ambulating, voiding. Tolerating a regular diet without nausea or vomiting. Normal lochia. Pain is well controlled with oral pain medications. Objective: Physical Exam: General - Alert and oriented, no apparent distress Abdomen - Soft, appropriately tender to palpation, non-distended, fundus firm at umbilicus Extremities - no edema, negative Claudia's bilaterally Incision- c/d/i Assessment: POD 1 RLTCS Acute blood loss anemia Plan: Routine care. Encourage breast feeding. Encourage ambulation. Ferrous sulfate supplementation. Plan for discharge tomorrow Vitals - Labs Vital Signs - I&O Vital Signs Date Time Temp Pulse Resp B/P (MAP) Pulse Ox O2 Delivery O2 Flow Rate FiO2 12/13/18 04:07 98.2 82 18 106/58 (74) Room Air 12/13/18 02:58 Room Air 12/13/18 01:42 98.2 16 99 12/13/18 01:27 98.0 16 99 12/13/18 01:12 97.4 16 99 12/13/18 00:57 97.1 16 99 12/12/18 22:00 98.2 77 18 136/80 (98) Room Air I & O 12/13/18 07:00 Intake Total 650 ml Output Total 200 ml Balance 450 ml Labs Laboratory Tests 12/12/18 23:10: White Blood Count 11.6H, Red Blood Count 3.88L, Hemoglobin 12.2, Hematocrit 35, Mean Corpuscular Volume 90, Mean Corpuscular Hemoglobin 31, Mean Corpuscular Hemoglobin Concent 35, Red Cell Distribution Width 13.0, Platelet Count 178, Mean Platelet Volume 10.9H, Neutrophils (%) (Auto) 71, Lymphocytes (%) (Auto) 21, Monocytes (%) (Auto) 6, Eosinophils (%) (Auto) 2, Basophils (%) (Auto) 0, Neutrophils # (Auto) 8.2H, Lymphocytes # (Auto) 2.5, Monocytes # (Auto) 0.7, Eosinophils # (Auto) 0.2, Basophils # (Auto) 0.0 12/13/18 05:35: White Blood Count 11.5H, Red Blood Count 3.27L, Hemoglobin 10.5L, Hematocrit 30L , Mean Corpuscular Volume 91, Mean Corpuscular Hemoglobin 32, Mean Corpuscular Hemoglobin Concent 35, Red Cell Distribution Width 13.0, Platelet Count 137, Mean Platelet Volume 10.2, Neutrophils (%) (Auto) 79H, Lymphocytes (%) (Auto) 14, Monocytes (%) (Auto) 7, Eosinophils (%) (Auto) 0, Basophils (%) (Auto) 0, Neutrophils # (Auto) 9.1H, Lymphocytes # (Auto) 1.6, Monocytes # (Auto) 0.8, Eosinophils # (Auto) 0.1, Basophils # (Auto) 0.0 BERNICE BENITEZ DO Dec 13, 2018 07:48
[2018-12-13] MEDS ORDERED: DOCUSATE SODIUM 100 MG (COLACE) CAP PO SCH (09:00)
--- NOTE | 2018-12-13 11:58 | Anesthesia-Regional Post-Op ---
Regional Patient Condition Mental Status: Alert, Oriented x3 Circulation: Same as Pre-Op Headache: Absent Sensation: Full Recovery Motor Block: Absent Post Op Complications Complications None Follow Up Care/Instructions Patient Instructions None needed. Anesthesia/Patient Condition Patient is doing well, no complaints, stable vital signs, no apparent adverse anesthesia problems. No complications reported per nursing. ARISTEO RODRÍGUEZ CRNA Dec 13, 2018 11:58
[2018-12-13] MEDS: IBUPROFEN 600 MG (MOTRIN) TAB PO SCH ×2 (12:23→17:40)
[2018-12-13] MEDS ORDERED: FAMOTIDINE 20MG/2ML IV (PEPCID) IV ONE (20:00)
[2018-12-13] MEDS ORDERED: CITRIC ACID/SOB CIT (BICITRA) 30 ML UDC PO ONE (20:00)
[2018-12-13] MEDS ORDERED: METOCLOPRAMIDE INJ 10 MG/2 ML (REGLAN) IV ONE (20:00)
[2018-12-13] MEDS ORDERED: LACTATED RINGERS 1,000 ML IV PRN (20:01)
--- NOTE | 2018-12-13 21:14 | NUR ---
pt resting in bed. assessment completed. pt denies any needs at this time. will continue to monitor.
[2018-12-14] MEDS: IBUPROFEN 600 MG (MOTRIN) TAB PO SCH ×2 (00:50→06:12)
[2018-12-14 01:30] VITALS: BP 117/68
[2018-12-14] MEDS: HYDROcodone/APAP 5 MG/325 MG (LORTAB) TAB PO PRN (01:34)
[2018-12-14 06:13] VITALS: BP 100/65
[2018-12-14] MEDS ORDERED: FLUTICASONE NASAL SPRAY (FLONASE) 16 GM BTL NS SCH (09:00)
== END 2018-12-14 14:20 | disposition home or self-care (01) | DRG 787 ==
LOC: WSo 21:51 → LDRP 21:51 → WSo 23:03 → LDRP 23:04
PROVIDERS: ADMIT Obstetrics & Gynecology; ATTEND Obstetrics & Gynecology
PROC: 10D00Z1 Extraction of Products of Conception, Low, Open Approach (ICD-10-PCS; principal; 2018-12-12)
DX: O34.211 Maternal care for low transverse scar from previous cesarean delivery (principal); O90.81 Anemia of the puerperium; D62 Acute posthemorrhagic anemia; O69.81X0 Labor and delivery complicated by cord around neck, without compression, not applicable or unspecified; O99.343 Other mental disorders complicating pregnancy, third trimester; F90.9 Attention-deficit hyperactivity disorder, unspecified type; Z3A.38 38 weeks gestation of pregnancy; Z37.0 Single live birth
CPT/HCPCS: 36415; 85025; 86850; 86900; 86901; 94664; 99212